=== PATIENT | male | born 1925 | race Caucasian/White ===

== ENCOUNTER 2016-08-13 11:22 | Observation (INO) | payer OTHER ==
[2016-07-02 09:48] LABS: BLOOD UREA NITROGEN 25 mg/dl (7-18); BUN/CREATININE RATIO 15.7 (10-20); CARBON DIOXIDE 31 mmol/L (21-32); CHLORIDE 105 mmol/L (98-107); GLUCOSE 109 mg/dl (70-99); POTASSIUM 4.3 mmol/L (3.5-5.1); SODIUM 144 mmol/L (136-145)
[2016-07-02 09:51] LABS: INR 2.9 (0.9-1.1); PARTIAL THROMBOPLASTIN RATIO 1.6; PROTHROMBIN TIME (PATIENT) 32.6 SECONDS (9.0-12.0)
[2016-07-02 09:55] LABS: HEMATOCRIT 49.7 % (42-52); MEAN CORPUSCULAR HGB CONC 32.2 g/dl (32-36); MEAN PLATELET VOLUME 11.5 fL (7.4-10.4); PLATELET COUNT 150 K/uL (130-400); RED BLOOD COUNT 5.52 M/uL (4.7-6.1); WHITE BLOOD COUNT 6.98 K/uL (4.8-10.8)
[2016-07-02 10:03] LABS: CALCIUM 9.4 mg/dl (8.5-10.1)
[~2016-08-13] VITALS: Ht 182.9 cm; Wt 96.2 kg
[~2016-08-13 11:22] MED LIST: ACET-1256 PO; AMIO200T4 PO; AMT24 PO; ASPI-435 PO; CEFAZOLIN 1000MG/55 ML D5W IV SCH; CLC100 PO; COEN1CAP37 PO; LEVO88TA3 PO; LPT/40 PO; LSX40 PO; MISSING PHYSICIAN SIGNATURE ON ORDER SCH; MRLP17 PO; MULTTAB58 PO; NITR0.2D TD; NRN100 PO; NTRGSL/4 UT; OXGN; PATIENT'S HEIGHT AND/OR WEIGHT NEEDED SCH; PRT/40 PO; TPRSR/25 PO; WARF4TAB43 PO
[2016-08-13] MEDS ORDERED: PSYL48.59 PO (12:15)
[2016-08-13] MEDS ORDERED: POLY335019 PO (12:15)
[2016-08-13] MEDS ORDERED: CHOL1000 PO (12:22)
[2016-08-13 12:23] VITALS: BP 140/82; PULSE 76; TEMP 36.5; O2SAT 95; BMI 29.0
[2016-08-13] MEDS ORDERED: BACITRACIN OINT 0.9 GM PKT ONE ×2 (14:18→17:16)
[2016-08-13] MEDS ORDERED: LIDOCAINE HCL 1% 20 ML VIAL ONE ×2 (14:18→16:00)
[2016-08-13] MEDS ORDERED: BACITRACIN 50000 UNIT VIAL ONE (14:18)
[2016-08-13] MEDS ORDERED: FENTANYL CITRATE INJ 50 MCG/1 ML 2 ML VIAL ONE ×2 (14:40→15:59)
[2016-08-13] MEDS ORDERED: MIDAZOLAM HCL 5 MG/ML 1 ML VIAL ONE ×2 (14:40→16:00)
[2016-08-13] MEDS ORDERED: KEFZOL SPECIAL PROCEDURE STOCK 1 GM ADDVIAL IV ONE (14:46)
--- NOTE | 2016-08-13 14:58 | Procedure Note ---
Pre-Mod Sedation Assessment General Date of Moderate Sedation: Aug 13, 2016. Vital Signs: Vital Signs Past 12 Hours Date Time Temp Pulse Resp B/P Pulse Ox O2 Delivery O2 Flow Rate FiO2 08/13/16 12:23 36.5 76 20 140/82 95 Review Cardiovascular: regular rate, rhythm Abdomen: normal bowel sounds Lungs: lungs clear Pre-Sedation Airway Assessment Oral Cavity: WNL Smoking Status: Former Smoker Procedure Planning Contraindications-for Mod Sed: None Yes Notes The planned sedation has been discussed with the patient and consent obtained. I have identified the patient, determined the appropriateness of sedation and have assessed the patient immediately prior to the procedure. All medicine(s) and interventions are by my order.
--- NOTE | 2016-08-13 17:40 | Procedure Note ---
Post-Mod Sedation Assessment General Date of Moderate Sedation Aug 13, 2016. Vital Signs: Vital Signs Past 12 Hours Date Time Temp Pulse Resp B/P Pulse Ox O2 Delivery O2 Flow Rate FiO2 08/13/16 17:30 57 18 164/86 94 Nasal Cannula 3 08/13/16 12:23 36.5 76 20 140/82 95 Review - Discharge Criteria Vital Signs Stable: Yes Alert/Oriented/Conversant: Yes Returned to Baseline Mental St: Yes Nausea Absent/Minimal: Yes Pain/Discomfort/Absent/Minimal: Yes Normal/Baseline Respirations: Yes Active Bleeding?: No
--- NOTE | 2016-08-13 17:48 | Cardiology Procedure Brief Nt ---
Preliminary Cardiology Note Procedure Date Aug 13, 2016. Pre-Procedure Diagnosis sustained ventricular tachycardia Post-Procedure Diagnosis same Procedure(s) Performed 1. Left subclavian venography 2. Attempted left sided lead implantation 3. Right sided dual-chamber ICD implantation with a ventricular ICD lead and an atrial lead 4. Left-sided pacemaker removal Executive Meeting Manager Dr. Wolfe Marble Supervisor(s) none Estimated Blood Loss 50 cc Preliminary Findings The left subclavian vein was patent and easily accessed, however there was a constricting lesion which could not be passed near the insertion of the left subclavian vein into the superior vena cava. After several attempts to pass this area that was abandoned and a dual-chamber ICD system was implanted from the right. We did not tunnel the lead from one side or the other as there appeared to be somewhat anomaly with atrial pacing during the procedure and we were concerned about the status of the left sided atrial lead. Recommendations Monitor overnight Specimens Old pacemaker, return to Medtronic Anesthesia local with sedation Complication(s) None Disposition PCU
[2016-08-13] MEDS ORDERED: ACETAMINOPHEN 325 MG TAB PO PRN (18:00)
[2016-08-13] MEDS ORDERED: NITROGLYCERIN 0.4 MG SL PER TAB CHARGE UT PRN (18:00)
[2016-08-13] MEDS ORDERED: ACETAMINOPHEN 500 MG TAB PO PRN (18:00)
[2016-08-13 18:01] VITALS: BP 164/91; PULSE 60; TEMP 36.4; O2SAT 93; Ht 182.9 cm; Wt 96.2 kg
[2016-08-13] MEDS ORDERED: IV FLUIDS COMPLETED PRN (19:45)
[2016-08-13 20:04] VITALS: BP 129/81; PULSE 61; TEMP 36.5; O2SAT 91
[2016-08-13] MEDS ORDERED: GABAPENTIN 100 MG CAP PO SCH (21:00)
[2016-08-13] MEDS ORDERED: NITROGLYCERIN 0.2 MG/HR PATCH TD SCH (21:00)
[2016-08-13] MEDS: POLYETHYLENE (MIRALAX) 17 GM PACK PO SCH (21:00)
[2016-08-13] MEDS: CEFAZOLIN IV 2,000 MG in DEXTROSE 5% 50ML 50 ML IV SCH (21:49)
[2016-08-13] MEDS: OXYCODONE/ACETAMINOPHEN 5-325 TAB PO PRN (21:57)
[2016-08-14 00:09] VITALS: BP 140/80; PULSE 60; TEMP 36.9; O2SAT 91
[2016-08-14 03:40] VITALS: BP 116/71; PULSE 60; TEMP 36.9; O2SAT 91
[2016-08-14] MEDS: CEFAZOLIN IV 2,000 MG in DEXTROSE 5% 50ML 50 ML IV SCH ×2 (05:43→13:54)
[2016-08-14] MEDS ORDERED: LEVOTHYROXINE 88 MCG TAB PO SCH (06:00)
[2016-08-14 07:13] LABS: INR 1.4 (0.9-1.1); PROTHROMBIN TIME (PATIENT) 14.7 SECONDS (9.0-12.0)
--- NOTE | 2016-08-14 07:22 | DIAGNOSTIC IMAGING REPORT ---
CHEST 2 VIEWS ROUTINE HISTORY: EXACT TIME ORDERED Evaluate for pneumothorax and lead placement COMPARISON: Chest 10/02/2015. FINDINGS: The left-sided pacemaker is removed. However, the leads are still present. There is been interval placement of a right-sided dual-chamber pacemaker/defibrillator. The leads appear intact. No pneumothorax. No pleural effusions. Linear densities the left lung base persist and likely represents scarring or subsegmental atelectasis. The lungs are otherwise clear. The heart is mildly enlarged. There are poststernotomy changes. IMPRESSION: 1. Interval placement of a right-sided pacemaker/defibrillator. No pneumothorax. 2. Removal of the left-sided pacemaker. However, the left-sided leads remain. Electronically signed by: Prakash Nixon M.D. 08/14/2016 7:20 AM Dictated Date/Time: 08/14/2016 7:18 AM
[2016-08-14 07:53] VITALS: BP 129/77; PULSE 64; TEMP 36.6; O2SAT 92
[2016-08-14] MEDS: POLYETHYLENE (MIRALAX) 17 GM PACK PO SCH (08:06)
[2016-08-14] MEDS ORDERED: ATORVASTATIN 40 MG TAB PO SCH (09:00)
[2016-08-14] MEDS ORDERED: FUROSEMIDE 40 MG TAB PO SCH (09:00)
[2016-08-14] MEDS ORDERED: PANTOprazole SOD 40 MG TAB PO SCH (09:00)
[2016-08-14] MEDS ORDERED: METOPROLOL SUCC 25MG EXT REL TAB PO SCH (09:00)
[2016-08-14] MEDS ORDERED: AMIODARONE 200 MG TAB PO SCH (09:00)
[2016-08-14] MEDS ORDERED: MULTIVITAMIN TAB PO SCH (09:00)
[2016-08-14] MEDS ORDERED: ASPIRIN 81 MG ECTAB PO SCH (09:00)
--- NOTE | 2016-08-14 09:57 | Discharge Instructions ---
Discharge Instructions Admission Ventricular Tachycardia Discharge Discharge Diagnosis / Problem: Upgrade of dual-chamber pacemaker to a dual- chamber ICD Discharge Goals Goal(s): Improve disease control Activity Recommendations Activity Limitations: as noted below . Instructions / Follow-Up Instructions / Follow-Up ACTIVITY RECOMMENDATIONS: * Do not raise affected arm over head for 2 weeks. SPECIAL CARE INSTRUCTIONS: * If bleeding occurs, apply direct pressure to area for 5 minutes. * Call your doctor if you have severe pain, fever, drainage or bleeding at site. * Keep dressing on and dry for 48 hours then remove. * Keep any scheduled doctor's appointment. * Implant Card - hand held device with website information given. SKIN IRRITATION: * You may experience some redness and/or swelling in the area where radiation was administered. If any skin irritation occurs, please contact your family physician. FOLLOW UP VISIT: 08/16/16 @ 10 am Current Hospital Diet Patient's current hospital diet: AHA Diet (Heart Healthy) Discharge Diet Recommended Diet: AHA Diet (Heart Healthy) Pending Studies Studies pending at discharge: no Medical Emergencies . Who to Call and When: Medical Emergencies: If at any time you feel your situation is an emergency, please call 911 immediately. . Non-Emergent Contact Non-Emergency issues call your: Psychological Examiner . . "Provider Documentation" section prepared by Tasha Wakefield. VTE Core Measure Inpt VTE Proph given/why not?: Treatment not indicated
--- NOTE | 2016-08-14 10:03 | Discharge Summary ---
Discharge Summary Admission Date: Aug 13, 2016 at 17:52 Discharge Date: Aug 14, 2016 Discharge Disposition: Home Primary Diagnosis: Ventricular tachycardia Secondary Diagnoses/Problems: Ischemic cardiomyopathy Procedures: 1. Left subclavian venography 2. Attempted left sided lead implantation 3. Right sided dual-chamber ICD implantation with a ventricular ICD lead and an atrial lead 4. Left-sided pacemaker removal Discharge Instructions Last Recorded Wt (Kilograms): 96.200 Activity Recommendations: limitations as noted below Allergies: Coded Allergies: Adhesives (Unverified Allergy, Unknown, RASH, 08/13/16) Celecoxib (Verified Allergy, Unknown, 08/13/16) Rofecoxib (Verified Allergy, Unknown, 08/13/16) Additional Instructions: ACTIVITY RECOMMENDATIONS: * Do not raise affected arm over head for 2 weeks. SPECIAL CARE INSTRUCTIONS: * If bleeding occurs, apply direct pressure to area for 5 minutes. * Call your doctor if you have severe pain, fever, drainage or bleeding at site. * Keep dressing on and dry for 48 hours then remove. * Keep any scheduled doctor's appointment. * Implant Card - hand held device with website information given. SKIN IRRITATION: * You may experience some redness and/or swelling in the area where radiation was administered. If any skin irritation occurs, please contact your family physician. FOLLOW UP VISIT: Keep any scheduled doctor appointments. Special Care: Call your doctor if: * Temperature above 101 degrees * Pain not relieved by pain medicine ordered * There is increased drainage or redness from any incision * You have any unanswered questions or concerns. Avoid all tobacco products. If you need help to stop smoking, call [place]'s FREE QUITLINE at . This is a free call. Admission HPI This is a 89-year-old gentleman with a history of coronary artery disease including bypass surgery. He has an ischemic cardiomyopathy with an ejection fraction which is moderately reduced (echo 04/01/2016 with an ejection fraction of 35-40%) and therefore he has not been a candidate for ICD therapy for primary prevention of sudden cardiac . He does have paroxysmal atrial fibrillation and is on amiodarone 200 mg daily, he also has a pacemaker in place for sick sinus syndrome, this was implanted on 06/20/2005 and he had a pacemaker replacement on 10/20/2013 (Medtronic Radha ZIEGLER). The pacemaker has been followed in the past through [facility]. He does have chronic systolic congestive heart failure but is generally well compensated. He returns now feeling quite well. He does have chronic stable angina, he has no lightheadedness, dizziness or palpitations and perhaps class II [place] [employer] heart failure symptoms. He is quite sedentary and does not exercise regularly. Admission Physical Exam Constitutional: Alert, cooperative and in no distress. HEENT: Unremarkable Neck: No jugular venous distention, carotid pulses are normal and equal bilaterally without bruits. Pulmonary: Clear to auscultation bilaterally. Cardiac: Regular rhythm with no murmur, gallop or rub. Abdomen: Soft, nontender with normal bowel sounds. Extremities: No edema. Distal pulses intact. Neurologic: No focal findings. Gait is steady. Skin: The device site is well-healed without erythema, swelling or tenderness. No rash, ecchymoses or petechiae. Hospital Course Patient is an 89-year-old male with ischemic cardiomyopathy and ventricular tachycardia who underwent upgrade of dual-chamber pacemaker to dual-chamber ICD on 08/13/[address] Wolfe. He tolerated the procedure well. Device check the following day showed excellent sensing and pacing characteristics. CXR showed good lead placement and no evidence of pneumothorax. He was deemed stable for discharge home on 08/15/16. He will have follow-up in 2 days for an incision check and in 1 month for a device check. Total time spent on discharge = This includes examination of the patient, discharge planning, medication reconciliation, and communication with other providers.
[2016-08-14 11:00] VITALS: BP 104/65; PULSE 60; TEMP 36.3; O2SAT 91
[2016-08-14 14:20] VITALS: BP 104/65; PULSE 60; TEMP 36.3; O2SAT 91
[2016-08-14] MEDS: OXYCODONE/ACETAMINOPHEN 5-325 TAB PO PRN (14:46)
[2016-08-14] MEDS ORDERED: WARFARIN SOD 2 MG TAB PO SCH (16:00)
--- NOTE | 2016-09-11 11:42 | OPERATIVE REPORT ---
DATE OF OPERATION: 08/13/2016 PREOPERATIVE DIAGNOSIS: Sustained ventricular tachycardia. POSTOPERATIVE DIAGNOSIS: 1. Sustained ventricular tachycardia. 2. 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 PROCEDURE 1. Left subclavian venography. 2. Attempted left-sided ICD lead implantation. 3. Right-sided dual chamber ICD implantation with a new ventricular ICD lead and a new atrial lead. 4. Left-sided pacemaker removal. SURGEON: Berny Wolfe M.D. ANESTHESIA: Local with sedation. HISTORY OF PRESENT ILLNESS: This is an 89-year-old male who has a history of coronary artery disease and coronary bypass surgery and ischemic cardiomyopathy with an ejection fraction which was moderately reduced (35-40%). He therefore has not been a candidate for ICD therapy for primary prevention of sudden cardiac . He does have paroxysmal atrial fibrillation and is on amiodarone. He had a pacemaker implanted 06/20/2005 and replacement 10/20/2013. He was observed to have an episode of ventricular tachycardia identified on his pacemaker, this occurred on 11/26/2015 and lasted for 5 minutes at a rate of 174 beats per minute. Intracardiac electrograms confirmed that this is ventricular tachycardia. With his cardiomyopathy and now with sustained ventricular tachycardia an ICD is indicated. PROCEDURE: After obtaining informed consent for the procedure with plans to upgrade his left-sided pacemaker to an ICD left subclavian venography was performed using the left arm IV site. The left subclavian vein itself appeared to be patent; therefore, left subclavian venipuncture was performed by percutaneous technique and a guidewire placed through the left subclavian vein into the right atrium. Attempts to pass a dilator through this area; however were unsuccessful, repeat dye injection showed that there was some type of constriction near the junction of the left subclavian vein and the superior vena cava. After several attempts, this area did not seem to be passable and therefore this was abandoned. During this procedure, there appeared to be some anomalous pacing through the atrial lead placed on that side as well. The left side was therefore temporarily covered, the right side was prepped and draped and right subclavian venipuncture was performed by percutaneous technique and a guidewire placed through the right subclavian vein into the right atrium. A 10.5-Swazi [employer] lead introducer was placed over the guidewire into the right subclavian vein, the dilator and guidewire were removed and a bipolar active fixation steroid-tipped defibrillator lead was advanced through the introducer into the right atrium. The guidewire was placed back through introducer and introducer stripped away from lead and guidewire. An 8-Swazi Medtronic lead introducer was placed over the guidewire into the right subclavian vein, the dilator and guidewire were removed and a bipolar active fixation steroid-tipped atrial lead was advanced through introducer into the superior vena cava. The guidewire was placed through the introducer and introducer stripped away from lead and guidewire. Using a curved stylette, the ventricular lead was advanced through the right ventricular outflow tract into the pulmonary artery and then using a straight stylette was positioned in the right ventricular apex. Once in position, the ventricular pacing threshold was evaluated in bipolar configuration at a pulse width of 0.5 milliseconds. The final ventricular pacing threshold was 0.7 volts with a current of 0.6 milliamp, 5-volt lead impedance was 1192 ohms and R-waves were sensed at 7.3 millivolts. Diaphragmatic pacing was not present with a 10 volt bipolar output. The atrial lead was then positioned in the region of the atrial appendage and the screw extended fixing the lead in position. The atrial pacing threshold was evaluated in bipolar configuration at a pulse width of 0.5 milliseconds. Final atrial pacing threshold was 0.7 volts with a current of 1.0 milliamp, 5-volt lead impedance was 745 ohms and P-waves were absent. Diaphragmatic pacing was not present with a 10 volt bipolar output. Once these leads were in position, they were attached to the anterior pectoralis fascia using 2 sutures of 2-0 silk around each lead collar. The bacitracin-soaked sponge was removed from the pocket which had been created earlier, hemostasis was obtained and the ICD (Medtronic Evera) was attached to the leads and found to be functioning normally. The ICD was placed in the pocket and the incision closed with a running double subcutaneous closure of 3-0 Vicryl followed by a running subcuticular skin closure of 4-0 Vicryl. Bacitracin ointment was placed on incision and a pressure dressing applied. The left side was once again uncovered, the atrial lead and the ventricular lead was capped, these were placed on incision and the incision was closed with a running double subcutaneous closure of 3-0 Vicryl followed by running subcuticular skin closure of 4-0 Vicryl. Bacitracin ointment was placed on this incision and a pressure dressing applied. The patient tolerated the procedure well, there were no complications and estimated blood loss was 50 mL. The chronic left-sided pacemaker which was explanted was a Medtronic Model ADDR01, serial #[id number], implanted 10/20/2013. This device will be returned to [employer]. The left-sided atrial lead is a Medtronic model 5568, serial #[id number], implanted 06/20/2005. This lead is capped with a model 5867-3 and lot #[id number] lead cap and remains in place. The left-sided ventricular pacing lead is a Medtronic model 4092, serial #[id number], implanted 06/20/2005. This lead is capped with a Medtronic model 5867-3M, lot #[id number] lead cap. This lead remains in place on the left. The new atrial lead from the right is a Medtronic model 5076, serial #[id number] and is a bipolar active fixation steroid-tipped lead. The new ICD lead from the right is a Medtronic Sprint Quattro Secure model DXAC/DSP #6947, serial #[id number]. The new ICD from the right is a Medtronic Evera XTDR model WENS3L8, serial #[id number]. The ICD was reprogrammed in the laboratory to final settings. Although the new ICD lead and atrial lead are MRI compatible the presence of abandoned leads makes the entire system non-MRI compatible. [facility]
== END 2016-08-14 15:09 | disposition home or self-care (01) ==
LOC: C.ACU 11:22 → C.2T 17:52
PROVIDERS: ADMIT Internal Medicine Cardiovascular Disease; ATTEND Internal Medicine Cardiovascular Disease
DX: I47.2 Ventricular tachycardia (principal); I87.1 Compression of vein; I25.5 Ischemic cardiomyopathy; I48.0 Paroxysmal atrial fibrillation; I25.118 Atherosclerotic heart disease of native coronary artery with other forms of angina pectoris; I50.22 Chronic systolic (congestive) heart failure; Z95.1 Presence of aortocoronary bypass graft; N18.3 Chronic kidney disease, stage 3 (moderate); E03.9 Hypothyroidism, unspecified; E78.5 Hyperlipidemia, unspecified; E55.9 Vitamin D deficiency, unspecified; G62.9 Polyneuropathy, unspecified; Z79.899 Other long term (current) drug therapy; Z79.82 Long term (current) use of aspirin; Z85.828 Personal history of other malignant neoplasm of skin; Z87.891 Personal history of nicotine dependence; Z82.49 Family history of ischemic heart disease and other diseases of the circulatory system

== ENCOUNTER 2016-10-22 14:05 | Emergency (ER) | payer OTHER ==
[~2016-10-22] VITALS: Ht 182.9 cm; Wt 100.1 kg
[~2016-10-22 14:05] MED LIST changes: -AMT24 PO; -CEFAZOLIN 1000MG/55 ML D5W IV SCH; +CHOL1000 PO; -CLC100 PO; -MISSING PHYSICIAN SIGNATURE ON ORDER SCH; +PANT40TA2 PO; -PATIENT'S HEIGHT AND/OR WEIGHT NEEDED SCH; -PRT/40 PO; +PSYL48.59 PO
[2016-10-22 14:11] VITALS: TEMP 36.6; Ht 182.9 cm; Wt 100.1 kg
[2016-10-22] MEDS ORDERED: ALBUTEROL 0.5% NEB SOLN 2.5 MG/0.5 ML VIAL INH STA (14:49)
[2016-10-22] MEDS ORDERED: NITR0.2D3 TD (14:54)
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
[2016-10-22 15:06] LABS: INR 3.4 (0.9-1.1)
[2016-10-22 15:08] LABS: URINE APPEARANCE CLEAR (CLEAR); URINE BILIRUBIN NEG (NEG); URINE COLOR YELLOW; URINE NITRITE NEG (NEG); URINE SPECIFIC GRAVITY 1.009 (1.000-1.030); UROBILINOGEN NEG (NEG)
--- NOTE | 2016-10-22 15:13 | DIAGNOSTIC IMAGING REPORT ---
CHEST ONE VIEW PORTABLE HISTORY: Short of breath. COMPARISON: Chest 08/14/2016. FINDINGS: There are poststernotomy changes and a right-sided pacemaker/defibrillator. There are old left-sided pacemaker leads present. The heart remains mildly enlarged. No pneumothorax. Mild bibasilar interstitial thickening is likely chronic. No new focal lung consolidations. Stable blunting of the right lateral costophrenic sulcus. IMPRESSION: No significant change compared to the prior study. No acute process. Electronically signed by: Prakash Nixon M.D. 10/22/2016 3:12 PM Dictated Date/Time: 10/22/2016 3:10 PM
[2016-10-22 15:18] LABS: MANUAL MICROSCOPIC REQUIRED? NO; REVIEW REQ? NO
[2016-10-22 15:19] LABS: ALT/SGPT 60 U/L (12-78); AST/SGOT 43 U/L (15-37); BLOOD UREA NITROGEN 34 mg/dl (7-18); BUN/CREATININE RATIO 18.7 (10-20); CALCIUM 8.8 mg/dl (8.5-10.1); CARBON DIOXIDE 31 mmol/L (21-32); CHLORIDE 104 mmol/L (98-107); GLUCOSE 81 mg/dl (70-99); POTASSIUM 4.3 mmol/L (3.5-5.1); SODIUM 142 mmol/L (136-145)
[2016-10-22 15:24] LABS: ALKALINE PHOSPHATASE 101 U/L (45-117); CKMB/CK RATIO 1.5 (0-3.0)
[2016-10-22 15:28] LABS: HEMATOCRIT 47.9 % (42-52); MEAN CELL VOLUME 87.1 fL (80-100); MEAN CORPUSCULAR HEMOGLOBIN 28.7 pg (25-34); MEAN PLATELET VOLUME 10.5 fL (7.4-10.4); PLATELET COUNT 129 K/uL (130-400); WHITE BLOOD COUNT 7.77 K/uL (4.8-10.8)
[2016-10-22 15:29] LABS: BASO % 0.3 %; BASO ABS # 0.02 K/uL (0-0.2); COMPLETE YES; EOS % 2.6 %; IG% 0.3 %; LYMPH % 21.9 %; MONO % 10.6 %; NEUT % 64.3 %; PLT ESTIMATE DECREASED
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
[2016-10-22 17:26] VITALS: BP 133/69; PULSE 59; O2SAT 93
[2017-06-14] MEDS ORDERED: HYDR-5688 PO ×2 (01:59→04:58)
[2017-06-14] MEDS ORDERED: POLY335019 PO (02:02)
== END 2016-10-22 17:29 | disposition home or self-care (01) ==
LOC: EDBD 14:05 → C.EDC 14:07
DX: S61.412A Laceration without foreign body of left hand, initial encounter (principal); S61.411A Laceration without foreign body of right hand, initial encounter; S09.90XA Unspecified injury of head, initial encounter; V49.40XA Driver injured in collision with unspecified motor vehicles in traffic accident, initial encounter; I71.9 Aortic aneurysm of unspecified site, without rupture; I10 Essential (primary) hypertension; I49.9 Cardiac arrhythmia, unspecified; I25.9 Chronic ischemic heart disease, unspecified; E78.5 Hyperlipidemia, unspecified; E03.9 Hypothyroidism, unspecified; I21.3 ST elevation (STEMI) myocardial infarction of unspecified site; G47.30 Sleep apnea, unspecified; Z82.49 Family history of ischemic heart disease and other diseases of the circulatory system; Z87.891 Personal history of nicotine dependence; Z79.82 Long term (current) use of aspirin; Z79.01 Long term (current) use of anticoagulants; Z51.81 Encounter for therapeutic drug level monitoring

== ENCOUNTER → 2016-10-28 | Outpatient (CLI) | payer OTHER ==
[~2016-10-28] MED LIST changes: +HYDR-5688 PO; -NITR0.2D TD; +NITR0.2D3 TD; +POLY335019 PO; -PSYL48.59 PO
== END | disposition home or self-care (01) ==
LOC: C.PATHSPEC 17:22
PROVIDERS: ATTEND Plastic Surgery
DX: D04.62 Carcinoma in situ of skin of left upper limb, including shoulder (principal); I48.91 Unspecified atrial fibrillation; E55.9 Vitamin D deficiency, unspecified

== ENCOUNTER → 2016-12-24 | Outpatient (CLI) | payer OTHER ==
[2016-12-24 09:48] LABS: ALT/SGPT 68 U/L (12-78); BLOOD UREA NITROGEN 32 mg/dl (7-18); BUN/CREATININE RATIO 15.3 (10-20); CARBON DIOXIDE 31 mmol/L (21-32); CHLORIDE 103 mmol/L (98-107); CHOLESTEROL 153 mg/dl (0-200); GLUCOSE 98 mg/dl (70-99); POTASSIUM 4.5 mmol/L (3.5-5.1); SODIUM 141 mmol/L (136-145)
[2016-12-24 09:56] LABS: CALCIUM 9.1 mg/dl (8.5-10.1)
[2016-12-24 09:58] LABS: ALB/GLOB RATIO 0.9 (0.9-2); ALKALINE PHOSPHATASE 108 U/L (45-117); AST/SGOT 52 U/L (15-37); CHOLESTEROL/HDL RATIO 3.6; HDL CHOLESTEROL 43 mg/dl; LDL CHOLESTEROL CALCULATED 75 mg/dl; TRIGLYCERIDES 177 mg/dl (0-150); VERY LOW DENSITY LIPOPROT CALC 35 mg/dl
[2016-12-24 10:19] LABS: HEMATOCRIT 50.9 % (42-52); MEAN CELL VOLUME 88.4 fL (80-100); MEAN CORPUSCULAR HGB CONC 31.6 g/dl (32-36); MEAN PLATELET VOLUME 11.3 fL (7.4-10.4); PLATELET COUNT 154 K/uL (130-400); RED BLOOD COUNT 5.76 M/uL (4.7-6.1)
[2016-12-24 10:24] LABS: BASO % 0.5 %; BASO ABS # 0.04 K/uL (0-0.2); COMPLETE YES; IG% 0.4 %; LARGE PLATELETS 1+; LYMPH % 32.7 %; LYMPH ABS # 2.55 K/uL (1.2-3.4); MONO % 10.9 %; NEUT % 50.5 %
== END | disposition home or self-care (01) ==
LOC: C.LAB 06:39
PROVIDERS: ATTEND Internal Medicine Geriatric Medicine
DX: I48.91 Unspecified atrial fibrillation (principal); I25.10 Atherosclerotic heart disease of native coronary artery without angina pectoris; M15.9 Polyosteoarthritis, unspecified; E78.5 Hyperlipidemia, unspecified; G62.9 Polyneuropathy, unspecified; I50.22 Chronic systolic (congestive) heart failure; N18.3 Chronic kidney disease, stage 3 (moderate); E55.9 Vitamin D deficiency, unspecified

== ENCOUNTER → 2017-01-01 | Outpatient (CLI) | payer OTHER ==
--- NOTE | 2017-01-01 10:54 | DIAGNOSTIC IMAGING REPORT ---
ABDOMINAL AORTIC ULTRASOUND CLINICAL HISTORY: Abdominal aortic aneurysm. COMPARISON STUDY: CT of the abdomen and pelvis October 02, 2015. FINDINGS: The proximal abdominal aorta measures 2.8 x 2.8 cm. The mid abdominal aorta measures 3.4 x 3.4 cm and the distal aorta measures 3.1 x 2.9 cm. The caliber of the proximal bilateral common iliac arteries is normal. Extensive atherosclerotic plaque is present. IMPRESSION: No significant change in a 3.4 cm infrarenal abdominal aortic aneurysm since CT of October 02, 2015. Electronically signed by: Olivier Varghese M.D. 01/01/2017 10:53 AM Dictated Date/Time: 01/01/2017 10:47 AM
[2017-01-01 12:35] LABS: INR 2.6 (0.9-1.1)
[2017-01-01 12:58] LABS: BLOOD UREA NITROGEN 34 mg/dl (7-18); BUN/CREATININE RATIO 19.7 (10-20); CALCIUM 8.4 mg/dl (8.5-10.1); CARBON DIOXIDE 27 mmol/L (21-32); CHLORIDE 108 mmol/L (98-107); GLUCOSE 103 mg/dl (70-99); POTASSIUM 4.2 mmol/L (3.5-5.1); SODIUM 143 mmol/L (136-145)
== END | disposition home or self-care (01) ==
LOC: C.ULTR 10:11
PROVIDERS: ATTEND Internal Medicine Geriatric Medicine
DX: I71.4 Abdominal aortic aneurysm, without rupture (principal); N18.3 Chronic kidney disease, stage 3 (moderate); Z79.01 Long term (current) use of anticoagulants